=== PATIENT | female | born 1965 | race Caucasian/White ===

== ENCOUNTER 2017-06-23 10:09 | Day surgery (SDC) | payer MEDICAID ==
[2017-06-23] MEDS ORDERED: Lactated Ringer's 1,000 ML IV ONE (11:18)
[2017-06-23] MEDS ORDERED: Lidocaine PF 2% (5 ml) Inj (For Cardiac Arrhy) IV ONE (14:30)
[2017-06-23] MEDS ORDERED: Propofol 10 mg/ml Inj (20 ML) ONE (14:30)
[2017-06-23 15:11] VITALS: TEMP 98
[2017-06-23 15:23] VITALS: BP 115/75; PULSE 84; RESP 20; O2SAT 98
== END 2017-06-23 15:41 | disposition home or self-care (01) ==
LOC: H.ENDO 10:09
PROVIDERS: ATTEND Internal Medicine Gastroenterology
DX: Z12.11 Encounter for screening for malignant neoplasm of colon (principal); K64.8 Other hemorrhoids; K64.4 Residual hemorrhoidal skin tags; K31.89 Other diseases of stomach and duodenum; K25.9 Gastric ulcer, unspecified as acute or chronic, without hemorrhage or perforation; K44.9 Diaphragmatic hernia without obstruction or gangrene; R10.13 Epigastric pain; R14.0 Abdominal distension (gaseous)
CPT/HCPCS: 43239; 45378; 88305; J2001; J2704; J7120